=== PATIENT | female | born 1965 | race Caucasian/White ===

== ENCOUNTER 2019-09-07 00:53 | Emergency (ER) | payer BC, MEDICAID ==
[~2019-09-07] VITALS: Ht 172.7 cm; Wt 89.4 kg
[~2019-09-07 00:53] MED LIST: DOCU-131 PO; FERR159T3 PO; LACO100T PO; LISI-167 PO; METO10TA82 PO; ONDA4TAB10 PO; OXYC1TAB8 PO
[2019-09-07] MEDS ORDERED: HYDROcodone/APAP 5/325 TABLET PO ONE (01:00)
[2019-09-07] MEDS ORDERED: HYDROcodone/APAP 5/325 TABLET ONE (01:16)
[2019-09-07 01:42] VITALS: BP 116/65
== END 2019-09-07 02:01 | disposition home or self-care (01) ==
LOC: ED 01:30
DX: S63.521A Sprain of radiocarpal joint of right wrist, initial encounter (principal); I10 Essential (primary) hypertension; W18.30XA Fall on same level, unspecified, initial encounter; Y93.89 Activity, other specified; Y92.410 Unspecified street and highway as the place of occurrence of the external cause; Y99.8 Other external cause status
CPT/HCPCS: 29260; 99283

== ENCOUNTER 2020-11-10 16:08 | Emergency (ER) | payer MEDICAID ==
[~2020-11-10] VITALS: Ht 167.6 cm; Wt 104.0 kg
[2020-11-10 16:11] VITALS: BP 128/79
--- NOTE | 2020-11-10 16:17 | NUR ---
BREAK RN [facility], S/P [facility] EARLIER TODAY. DENIES HITTING HER HEAD AND NO L0C. FELL FORWARD ONTO KNEES. C/ RIGHT KNEE PAIN +EDEMA. DISTAL CSM+. BP AND PULSE OX MONITORING PLACED, CALL LIGHT W/I REACH. SBAR RPT TO JOSÉ ANTONIO SINGH
[2020-11-10] MEDS ORDERED: HYDROcodone/APAP 5/325 TABLET ONE (17:11)
--- NOTE | 2020-11-10 17:23 | NUR ---
PT TO IMAGING
[2020-11-10] MEDS ORDERED: HYDROcodone/APAP 5/325 TABLET PO ONE (17:30)
--- NOTE | 2020-11-10 18:39 | NUR ---
DISCAHRGE INSTRUCTIONS REVIEWED WITH PT. KNEE IMMOBILIZER APPLIED. PT DID NOT WANT CRUTCHES AND WAS ABLE TO AMBULATE WITH CANE.
== END 2020-11-10 18:41 | disposition home or self-care (01) ==
LOC: ED 18:28
DX: S80.01XA Contusion of right knee, initial encounter (principal); S83.91XA Sprain of unspecified site of right knee, initial encounter; M25.461 Effusion, right knee; I10 Essential (primary) hypertension; G40.909 Epilepsy, unspecified, not intractable, without status epilepticus; W01.0XXA Fall on same level from slipping, tripping and stumbling without subsequent striking against object, initial encounter; Y93.89 Activity, other specified; Y92.89 Other specified places as the place of occurrence of the external cause; Y99.8 Other external cause status
CPT/HCPCS: 29505; 99283